=== PATIENT | male | born 1985 | race Caucasian/White ===

== ENCOUNTER 2021-12-09 09:25 | Emergency (ER) | payer OTHER ==
[2021-12-09 09:37] VITALS: BMI 37.2
[2021-12-09] MEDS ORDERED: SODIUM CHLORIDE 0.9% 500 ML INFUS.BAG IV ONE (10:10)
[2021-12-09] MEDS ORDERED: ACETAMINOPHEN 1000 MG/100 ML BAG IVPB ONE (10:10)
[2021-12-09 11:14] LABS: BASO % 0.2 % (0-2.0); HEMATOCRIT 39.7 % (35.4-49); HEMOGLOBIN 13.5 GM/dL (11.7-16.9); LYMPH % 7.1 % (8-40); MCH 31.4 pg (25.7-33.7); MEAN CELL VOLUME 92.3 fl (80-96); MONO % 8.1 % (3.8-10.2); NEUT % 84.6 % (42.8-82.8); PLATELET COUNT 230 10^3/uL (134-434); RDW 13.1 % (11.9-15.9); WHITE BLOOD COUNT 13.9 K/mm3 (4.0-10.0)
[2021-12-09 11:28] LABS: ALBUMIN 3.8 g/dl (3.4-5.0); BLOOD UREA NITROGEN 12.1 mg/dL (7-18)
[2021-12-09 11:31] LABS: CREATININE 1.2 mg/dL (0.55-1.3)
[2021-12-09 11:32] LABS: BILIRUBIN,TOTAL 0.9 mg/dL (0.2-1)
[2021-12-09 11:33] LABS: TOT PROT 7.7 g/dl (6.4-8.2)
[2021-12-09] MEDS ORDERED: CEFTRIAXONE 1 GM in DEXTROSE 5%-WATER - 100 ML IVPB ONE (12:02)
[2021-12-09] MEDS ORDERED: AZITHROMYCIN IVPB 500 MG in DEXTROSE 5%-WATER - 250 ML IVPB ONE (12:02)
[2021-12-09] MEDS ORDERED: AZITHROMYCIN IVPB 500 MG/250 ML BAG IVPB ONE (12:23)
[2021-12-09] MEDS ORDERED: CEFTRIAXONE 1 GM/50 ML BAG ONE (12:23)
[2021-12-09 17:01] VITALS: BP 135/68; PULSE 78; RESP 18; TEMP 97.6
== END 2021-12-09 17:01 ==
LOC: JER 09:25
PROC: 3E033GC Introduction of Other Therapeutic Substance into Peripheral Vein, Percutaneous Approach (ICD-10-PCS; principal; 2021-12-09)
DX: R50.9 Fever, unspecified (principal)
CPT/HCPCS: 0241U-QW; 36415; 71045-TC-FY; 74177-TC; 80053; 83690; 85025; 99284-25; Q9967